=== PATIENT | male | born 1930 | race Caucasian/White ===

== ENCOUNTER → 2017-05-15 | Day surgery (SDC) | payer MEDICARE ==
[~2017-05-15] VITALS: Ht 170.2 cm; Wt 77.0 kg
[~2017-05-15] MED LIST: ALLO100T PO; ASPI81TA23 PO; BUPIVACAINE HCL PF 0.5% 10 ML VIAL ONE; CEPH-459 PO; CHLORHEXIDINE GLUCONATE 2 % 1 PACK (2 CLOTHS) TOPICAL PRN; CILO50TA PO; HYDR-3288 PO; LACTATED RINGER'S 1000 ML INJ 1,000 ML ONE; LACTATED RINGER'S 1000 ML IV PRN; LIDOCAINE HCL 2% 50 ML VIAL ONE; LOSA25TA PO; MELO7.5T27 PO; METF500T PO; METOPROLOL TARTRATE 25 MG TAB PO PRN; MIDAZOLAM HCL 2 MG/2 ML VIAL ONE; NAPR1TAB98 PO; NEOMYCIN/POLYMYXIN 1 ML G.U. IRRIGANT ONE; PLAV75TA29 PO; POVIDONE IODINE 5% (ANTISEPSIS KIT) 4 APPLICATIONS EACH NARE PRN; ROSU1TAB10 PO; ROSU20 PO; SODIUM CHLORID 0.9% 500 ML IV PRN; TRAM50TA PO; TRIAMCINOLONE ACETONIDE 40 MG/ML VIAL ONE; UROCTAB3 PO; ceFAZolin 1,000 MG/NS 100 ML IV SCH
[2017-05-15 13:12] VITALS: PULSE 63
[2017-05-15 13:45] VITALS: TEMP 97.8
--- NOTE | 2017-05-15 14:08 | MP ---
cc: Randall Rogers MD DATE OF OPERATION: 05/15/2017 DATE OF PROCEDURE: 05/15/2017 PREOPERATIVE DIAGNOSES: 1. Bilateral carpal tunnel syndrome. 2. Right deltoid mass. PROCEDURE PERFORMED: 1. Right open carpal tunnel release. 2. Right shoulder mass excisional biopsy. 3. Left carpal tunnel steroid injection. SURGEON: Louis. Sue III, MD PROCEDURE: The patient was brought to the operating room, placed upon the operating table. After the correct site and side of surgery were verified by members of each team in the room multiple times and, after adequate preoperative markings and preoperative written consent was verified by everyone and, after adequate anesthesia was achieved, the right upper extremity was prepped and draped in traditional sterile surgical fashion. A 50:50 mixture of 2% plain lidocaine and 0.5% plain Marcaine was infiltrated in the skin and subcutaneous tissue at the base of the palm, the limb was exsanguinated with an Giuliano wrap and a highly placed well-padded sterile tourniquet was inflated to 190 mmHg for a total of 13 minutes. A longitudinally oriented incision at the base of the palm was made in the skin and carried down through skin and subcutaneous tissue. Blunt dissection was performed. Bipolar electrocautery was used as needed. Palmar fascia was retracted in opposite directions. The transverse carpal ligament was identified and transected ulnar to its midline from its proximal-most to its distal-most extent completely freeing the carpal tunnel and all of its contents. There was obvious hypertrophic tenosynovium but everything appeared to be intact/in continuity. There was no evidence of any mass effect. There was no other anatomic abnormalities identified. Thorough irrigation with saline was performed and then the skin edges reapproximated using interrupted and running 4-0 nylon sutures. Attention was then paid to the right deltoid where the same local anesthetic was then infiltrated into the skin in the area of the planned incision and deep to the mass. A 3 cm incision was made over the mass and carried down through the skin and subcutaneous tissue. Blunt dissection was performed. A large lipomatous-appearing isolated mass was identified and easily dissected free from the surrounding tissue and passed off the field as a specimen. Bovie electrocautery was used to control any attached bleeders. There was no evidence of any active bleeding. Thorough irrigation was performed. The wound was closed using buried 3-0 Vicryl sutures and the skin edges reapproximated using running 4-0 nylon. The hand and arm were thoroughly cleansed and dried. The axillary tourniquet was released at the completion of the carpal tunnel procedure. Betadine and Adaptic dressing was applied over the wounds. The hand, wrist and forearm were wrapped with a bulky soft dressing followed by a circumferential wrap and then an Giuliano wrap in the usual fashion. The hand and all the fingers were soft, pink and warm with brisk capillary refill of less than 2 seconds. A bulky soft dressing was applied and secured over the deltoid wound. There is no evidence of bleeding or hematoma formation. The left carpal tunnel was then sterilely injected in the usual fashion with a 2:1 mixture of 2% plain lidocaine and Kenalog 40 mg/mL for a total of 3 mL injectate. A sterile compression dressing was applied. The patient tolerated the procedure well. He was awakened from anesthesia and transported to the postanesthesia care unit awake and in stable condition at the end of the case. Sponge, needle and instrument counts were correct at the end of the case as reported by the nurses in the room. MD CHANCE Pavon/ARIELA , 01:32 PM , 02:07 PM
[2017-05-15 14:25] VITALS: BP 126/67; PULSE 59; RESP 14; O2SAT 96
--- NOTE | 2017-05-16 09:50 | EKG ---
Date Performed: 05/15/2017 Time Performed: 11:41:51 PTAGE: 86 years EKG: Sinus rhythm RIGHT BUNDLE BRANCH BLOCK LEFT ANTERIOR FASCICULAR BLOCK ABNORMAL ECG PREVIOUS TRACING : 10/04/1999 07.32 Since the prior tracing, the patient has developed bifascic ular block. Clinical correlation advised. DOCTOR: Amalia Avila Interpretating Date/Time 05/16/2017 09:49:00
== END | disposition home or self-care (01) ==
LOC: PHSDC 10:06
PROVIDERS: ATTEND Orthopaedic Surgery Hand Surgery
DX: G56.03 Carpal tunnel syndrome, bilateral upper limbs (principal); R22.31 Localized swelling, mass and lump, right upper limb; I10 Essential (primary) hypertension; E11.9 Type 2 diabetes mellitus without complications; Z79.84 Long term (current) use of oral hypoglycemic drugs
CPT/HCPCS: 01810; 20526; 24076; 64721; 88304; 93005; J0690; J2250; J3010; J3301; J7120; 88305